=== PATIENT | female | born 1995 | race Two or more races ===

== ENCOUNTER 2017-08-10 19:10 | Observation (INO) | payer OTHER ==
[~2017-08-10] VITALS: Ht 160 cm; Wt 73.9 kg
[2017-08-10] MEDS ORDERED: PREN-546 PO (20:03)
[2017-08-10 20:08] VITALS: BP 117/75
[2017-08-10] MEDS ORDERED: INFLUENZA VIRUS VACCINE QUAD 0.5 ML SYR IMVAC SCH (20:30)
[2017-08-10] MEDS ORDERED: cefTRIAXone 1,000 MG in LIDOCAINE MPF 1% - **ER/OR** 2.1 ML IM ONE (21:05)
[2017-08-10] MEDS ORDERED: NALBUPHINE 10 MG/ML AMP IVP ONE (21:05)
[2017-08-10] MEDS ORDERED: NALBUPHINE HYDROCHLORIDE 10 MG/ML VIAL ONE (21:08)
[2017-08-10] MEDS ORDERED: cefTRIAXone 1,000 MG VIAL ONE (21:08)
[2017-08-10] MEDS ORDERED: LIDOCAINE MPF 1% - **ER/OR** 5 ML ONE (21:09)
== END 2017-08-10 22:35 | disposition home or self-care (01) ==
LOC: MLD 19:10
PROVIDERS: ADMIT Obstetrics & Gynecology; ATTEND Obstetrics & Gynecology
DX: O99.89 Other specified diseases and conditions complicating pregnancy, childbirth and the puerperium (principal); M54.5 Low back pain; Z3A.31 31 weeks gestation of pregnancy
CPT/HCPCS: G0378; J0696; J2001; J2300

== ENCOUNTER 2017-10-13 14:15 | Observation (INO) | payer SELFPAY ==
[~2017-10-13] VITALS: Ht 157.5 cm; Wt 79.4 kg
[2017-10-13] MEDS ORDERED: PREN-380 PO (14:46)
[2017-10-13 17:27] VITALS: BP 117/85
[2017-10-13 20:05] VITALS: BP 116/70
== END 2017-10-13 20:35 | disposition home or self-care (01) ==
LOC: MLD 14:15
PROVIDERS: ADMIT Obstetrics & Gynecology; ATTEND Obstetrics & Gynecology
DX: O62.9 Abnormality of forces of labor, unspecified (principal); Z3A.39 39 weeks gestation of pregnancy
CPT/HCPCS: 76805; G0378; Q0092

== ENCOUNTER 2017-10-15 14:30 | Observation (INO) | payer SELFPAY ==
[~2017-10-15] VITALS: Ht 157.5 cm; Wt 79.4 kg
[~2017-10-15 14:30] MED LIST: PREN-380 PO
[2017-10-15 16:15] LABS: APPEARANCE,URINE CLEAR (CLEAR); BILIRUBIN,URINE NEGATIVE (NEGATIVE); BLOOD, URINE 1+ (NEGATIVE); LEUKOCYTE ESTERASE ,URINE NEGATIVE (NEGATIVE); NITRITE, URINE NEGATIVE (NEGATIVE); PH,URINE 6.5 (5.0-9.0); UGLUCOSE NEGATIVE (NEGATIVE)
[2017-10-15 16:18] LABS: COLOR,URINE STRAW (YELLOW)
[2017-10-15 16:34] LABS: RBC,URINE 0-5 (RARE) /HPF (0-5)
[2017-10-15 16:35] LABS: WBC,URINE 6-15 (FEW) /HPF (0-5)
== END 2017-10-15 17:25 | disposition home or self-care (01) ==
LOC: MLD 14:30
PROVIDERS: ADMIT Obstetrics & Gynecology; ATTEND Obstetrics & Gynecology
DX: O48.1 Prolonged pregnancy (principal); Z3A.40 40 weeks gestation of pregnancy
CPT/HCPCS: 59025; 76815; 81001; 87086; 87186; G0378; Q0092

== ENCOUNTER 2017-10-16 18:51 | Inpatient (IN) | payer MEDICAID ==
[~2017-10-16] VITALS: Ht 157.5 cm; Wt 77.1 kg
[2017-10-16] MEDS ORDERED: AMPICILLIN 2,000 MG in NACL 0.9% 100 ML IV SCH (20:00)
[2017-10-16] MEDS ORDERED: AMPICILLIN 2,000 MG VIAL ONE (20:04)
[2017-10-16 20:29] LABS: BILIRUBIN,URINE NEGATIVE (NEGATIVE); BLOOD, URINE 2+ (NEGATIVE); LEUKOCYTE ESTERASE ,URINE 1+ (NEGATIVE); NITRITE, URINE NEGATIVE (NEGATIVE); UGLUCOSE NEGATIVE (NEGATIVE)
[2017-10-16 20:31] LABS: BASOPHILS % (AUTO) 0.2 % (0.0-2.0); EOSINOPHILS % (AUTO) 0.3 % (0.0-4.0); HEMATOCRIT 37.8 % (36-48); HEMOGLOBIN 12.5 g/dL (12.0-16.0); LYMPHOCYTES # (AUTO) 2.3 K/uL (2.5-16.5); LYMPHOCYTES % (AUTO) 18.2 % (20.5-51.1); MEAN CORPUSCULAR HEMOGLOBIN 29 pg (27-31); MEAN CORPUSCULAR HGB CONC 33 g/dL (33-37); MEAN CORPUSCULAR VOLUME 87.7 fL (80-94); MONOCYTES # (AUTO) 1.4 K/uL (0.8-1.0); MONOCYTES % (AUTO) 10.8 % (1.7-9.3); NEUTROPHILS # (AUTO) 8.9 K/uL (1.8-7.7); NEUTROPHILS % (AUTO) 70.5 % (42.2-75.2); PLATELET COUNT (AUTO) 295 K/uL (140-450); RED BLOOD CELL COUNT(AUTO) 4.31 MIL/uL (4.20-5.40); RED CELL DISTRIBUTION WIDTH 15.3 % (11.6-13.7); WHITE BLOOD COUNT (AUTO) 12.6 K/uL (4.8-10.8)
[2017-10-16 20:31] LABS: APPEARANCE,URINE SLIGHTLY HAZY (CLEAR); COLOR,URINE STRAW (YELLOW)
[2017-10-16] MEDS: LACTATED RINGERS 1,000 ML IV SCH (20:33)
[2017-10-16 20:41] LABS: RBC,URINE 11-20 (MOD) /HPF (0-5); WBC,URINE 6-15 (FEW) /HPF (0-5)
[2017-10-16 20:46] VITALS: BP 128/76
[2017-10-16] MEDS ORDERED: MISOPROSTOL 25 MCG TAB ONE (21:41)
[2017-10-16] MEDS ORDERED: OXYTOCIN 20 UNITS in LACTATED RINGERS 1,000 ML IV SCH (21:51)
[2017-10-16] MEDS ORDERED: NALBUPHINE 10 MG/ML AMP IVP PRN (21:55)
[2017-10-16] MEDS ORDERED: MISOPROSTOL 25 MCG TAB VG ONE (21:55)
[2017-10-17] MEDS ORDERED: AMPICILLIN 1,000 MG VIAL ONE ×6 (00:23→23:34)
[2017-10-17] MEDS: AMPICILLIN 1,000 MG in NACL 0.9% 50 ML IV SCH ×4 (00:26→23:37)
[2017-10-17] MEDS ORDERED: OXYTOCIN 20 UNITS/LR PREMIX 1,000 ML IV ONE (03:56)
[2017-10-17] MEDS: LACTATED RINGERS 1,000 ML IV SCH (07:08)
[2017-10-17] MEDS ORDERED: MISOPROSTOL 25 MCG TAB ONE (19:53)
[2017-10-18] MEDS ORDERED: AMPICILLIN 1,000 MG VIAL ONE ×4 (03:10→15:17)
[2017-10-18] MEDS: AMPICILLIN 1,000 MG in NACL 0.9% 50 ML IV SCH ×3 (03:16→15:41)
[2017-10-18] MEDS: LACTATED RINGERS 1,000 ML IV SCH (03:16)
[2017-10-18] MEDS ORDERED: OXYTOCIN 10 UNITS/ML VIAL ONE ×2 (07:30→18:31)
[2017-10-18] MEDS ORDERED: ceFAZolin 1,000 MG VIAL ONE (07:30)
[2017-10-18] MEDS ORDERED: BUPIVACAINE-MPF 0.5% 30 ML VIAL INJ ONE (07:30)
[2017-10-18] MEDS ORDERED: PROMETHAZINE 25 MG/ML VIAL ONE ×2 (11:03→16:17)
[2017-10-18] MEDS ORDERED: NALBUPHINE 10 MG/ML AMP ONE ×2 (11:03→16:17)
[2017-10-18] MEDS ORDERED: BUPIVACAINE 0.125%/NS PREMIX 250 ML ONE (14:40)
[2017-10-18] MEDS ORDERED: BUPIVACAINE 0.125%/NS PREMIX 250 ML EPI SCH (15:00)
[2017-10-18] MEDS ORDERED: LIDOCAINE 2% 1000 MG/50 ML VIAL INJ ONE (16:03)
[2017-10-18] MEDS ORDERED: METHYLERGONOVINE 0.2 MG/ML AMP ONE ×2 (19:59→20:04)
[2017-10-18] MEDS ORDERED: CARBOPROST 250 MCG/ML AMP IM ONE (20:04)
[2017-10-18] MEDS ORDERED: OXYTOCIN 20 UNITS in LACTATED RINGERS 1,000 ML IV SCH (20:38)
[2017-10-18] MEDS ORDERED: MEASLES, MUMPS, AND RUBELLA 1 VIAL SQVAC PRN (20:40)
[2017-10-18] MEDS ORDERED: BENZOCAINE/MENTHOL 20%-0.5% 60 GM CAN TP PRN (20:40)
[2017-10-18] MEDS ORDERED: IBUPROFEN 600 MG TAB PO PRN (20:40)
[2017-10-18] MEDS ORDERED: ACETAMINOPHEN 325 MG TAB PO PRN (20:40)
[2017-10-19 08:26] LABS: BASOPHILS # (AUTO) 0.1 K/uL (0.00-0.22); BASOPHILS % (AUTO) 0.3 % (0.0-2.0); EOSINOPHILS % (AUTO) 0.1 % (0.0-4.0); HEMATOCRIT 31.9 % (36-48); HEMOGLOBIN 10.3 g/dL (12.0-16.0); LYMPHOCYTES # (AUTO) 3.4 K/uL (2.5-16.5); LYMPHOCYTES % (AUTO) 18.4 % (20.5-51.1); MEAN CORPUSCULAR HEMOGLOBIN 29 pg (27-31); MEAN CORPUSCULAR HGB CONC 32 g/dL (33-37); MONOCYTES # (AUTO) 2.4 K/uL (0.8-1.0); MONOCYTES % (AUTO) 12.8 % (1.7-9.3); NEUTROPHILS # (AUTO) 12.6 K/uL (1.8-7.7); NEUTROPHILS % (AUTO) 68.4 % (42.2-75.2); PLATELET COUNT (AUTO) 269 K/uL (140-450); RED BLOOD CELL COUNT(AUTO) 3.59 MIL/uL (4.20-5.40); RED CELL DISTRIBUTION WIDTH 14.8 % (11.6-13.7); WHITE BLOOD COUNT (AUTO) 18.5 K/uL (4.8-10.8)
[2017-10-20] MEDS ORDERED: FERR325E14 PO (14:15)
[2017-10-20] MEDS ORDERED: TYL650S RC (14:16)
== END 2017-10-20 14:35 | disposition home or self-care (01) | DRG 560 ==
LOC: MLD 18:51 → MFCC 10-18 23:15
PROVIDERS: ADMIT Obstetrics & Gynecology; ATTEND Obstetrics & Gynecology
PROC: 10E0XZZ Delivery of Products of Conception, External Approach (ICD-10-PCS; principal; 2017-10-18)
PROC: 3E033VJ Introduction of Other Hormone into Peripheral Vein, Percutaneous Approach (ICD-10-PCS; 2017-10-18)
PROC: 3E0P7VZ Introduction of Hormone into Female Reproductive, Via Natural or Artificial Opening (ICD-10-PCS; 2017-10-18)
PROC: 00HU33Z Insertion of Infusion Device into Spinal Canal, Percutaneous Approach (ICD-10-PCS; 2017-10-18)
PROC: 3E0R3BZ Introduction of Anesthetic Agent into Spinal Canal, Percutaneous Approach (ICD-10-PCS; 2017-10-18)
DX: O48.0 Post-term pregnancy (principal); O99.824 Streptococcus B carrier state complicating childbirth; Z37.0 Single live birth; Z3A.40 40 weeks gestation of pregnancy; Z28.21 Immunization not carried out because of patient refusal
CPT/HCPCS: 36415; 51702; 59200; 59409; 81001; 85025; 86592; 86886; 86900; 86901; 87086; 87186; J0290; J0690; J2001; J2210; J2300; J2550; J2590; J3490; J7120